=== PATIENT | female | born 1975 | race Caucasian/White ===

== ENCOUNTER 2017-01-20 01:42 | Emergency (ER) | payer SELFPAY ==
[~2017-01-20] VITALS: Ht 172.7 cm; Wt 135.0 kg
[~2017-01-20 01:42] MED LIST: FURO1TAB93 PO; LASI20TA PO; LEVE250 PO; SEIZURE MED PO
[2017-01-20 01:45] VITALS: BP 183/101; PULSE 87; RESP 18; TEMP 99.2; O2SAT 98
--- NOTE | 2017-01-20 02:59 | PD ---
HPI Chief Complaint: Complaint Time Seen by Provider: 02:46 Travel History International Travel<30 days: No Contact w/Intl Traveler<30days: No Traveled to known affect area: No History of Present Illness HPI 41-year-old female complains of mid back pain and coughing congestion. Patient started having persistent cough for the past several several days. Patient denies any fever chills. Patient started having sharp mid back pain for the past 2 days. Patient states that she has intermittent nausea vomiting with the pain. Patient denies any dysuria or frequency. Patient denies any vaginal discharge or bleeding. Patient denies any weakness or numbness of lower extremity. Patient has history kidney stone in the past. On a scale of 1-10 the pain is an 8. PFSH Past Medical History Arthritis: Yes (OSTEO/RA) Anxiety: Yes Diminished Hearing: No Kidney Stones: Yes (HISTORY OF) Seizures: Yes (PRIOR TO TUMOR REMOVAL) Tetanus Vaccination: < 5 Years Influenza Vaccination: No ?: Not LMP: 01/13/17 Menopausal: No : 3 Para: 3 Miscarriage: 0 : 0 Ectopic : No Ovarian Cysts: No Tubal Ligation: Yes Past Surgical History Appendectomy: Yes (2009) Cholecystectomy: Yes Hysterectomy: No Neurologic Surgery: Yes (BRAIN TUMOR REMOVE 11/05/13) Social History Alcohol Use: No Tobacco Use: No Substance Use: No Allergies-Medications (Allergen,Severity, Reaction): Coded Allergies: No Known Allergies (Verified , 01/20/17) Reported Meds & Prescriptions Reported Meds & Active Scripts Active No Active Prescriptions or Reported Medications Review of Systems General / Constitutional: No: Fever Eyes: No: Visual changes HENT: No: Headaches Cardiovascular: No: Chest Pain or Discomfort Respiratory: Positive: Cough, No: Shortness of Breath Gastrointestinal: Positive: Nausea, Vomiting, No: Abdominal Pain Genitourinary: No: Dysuria Musculoskeletal: No: Pain Skin: No Rash Neurologic: No: Weakness Psychiatric: No: Depression Endocrine: No: Polydipsia Hematologic/Lymphatic: No: Easy Bruising Physical Exam Narrative GENERAL: Well-nourished, well-developed patient. SKIN: Focused skin assessment warm/dry. HEAD: Normocephalic. EYES: No scleral icterus. No injection or drainage. NECK: Supple, trachea midline. No JVD or lymphadenopathy. CARDIOVASCULAR: Regular rate and rhythm without murmurs, gallops, or rubs. RESPIRATORY: Breath sounds equal bilaterally. No accessory muscle use. GASTROINTESTINAL: Abdomen soft, non-tender, nondistended. MUSCULOSKELETAL: No cyanosis, or edema. BACK: Patient has moderate tenderness on palpation low thoracic upper lumbar area, without obvious deformity. No CVA tenderness. Negative straight leg raising. Neurologic exam normal. Data Data Last Documented VS Vital Signs Date Time Temp Pulse Resp B/P Pulse Ox O2 Delivery O2 Flow Rate FiO2 01/20/17 01:45 99.2 87 18 183/101 98 Room Air Orders Urinalysis - C+S If Indicated (01/20/17 02:52) Chest, Single Ap (01/20/17 02:52) Ct Abd/Pel W/O Iv Contrast (01/20/17 02:52) Ketorolac Inj (Toradol Inj) (01/20/17 03:00) Ondansetron Odt (Zofran Odt) (01/20/17 03:00) Labs Laboratory Tests Test 01/20/17 03:26 Urine Color LIGHT-YELLOW Urine Turbidity HAZY Urine pH 7.0 Urine Specific [place] 1.012 Urine Protein NEG mg/dL Urine Glucose (UA) NEG mg/dL Urine Ketones NEG mg/dL Urine Occult Blood NEG Urine Nitrite NEG Urine Bilirubin NEG Urine Urobilinogen LESS THAN 2.0 MG/DL Urine Leukocyte Esterase LARGE Urine RBC 3 /hpf Urine WBC 6 /hpf Urine Squamous Epithelial 5 /hpf Cells Urine Transitional Epithelial 1 /hpf Cells Urine Amorphous Sediment RARE Urine Mucus FEW /lpf Microscopic Urinalysis Comment CULT NOT INDICATED MDM Medical Decision Making Medical Screen Exam Complete: Yes Emergency Medical Condition: Yes Interpretation(s) Last Impressions Chest X-Ray 01/20/17251 Signed Impressions: Service Date/Time: Friday, January 20, 2017 03:08 - CONCLUSION: Normal examination for a patient of this age. Houston Seals MD Abdomen/Pelvis CT 01/20/17251 Signed Impressions: Service Date/Time: Friday, January 20, 2017 03:02 - CONCLUSION: 1. 5 mm nonobstructing stone lower pole left kidney. 2. 4 mm nonobstructing stone lower pole right kidney. Houston Seals MD Differential Diagnosis Differential diagnosis including URI, bronchitis, pneumonia, musculoskeletal, pyelonephritis, nephrolithiasis, UTI. Narrative Course 41-year-old female with mid back pain, coughing congestion, nausea vomiting. History of kidney stone. Diagnosis Primary Impression: Lumbar strain Qualified Code: S39.012A - Lumbar strain, initial encounter Patient Instructions: General Instructions Additional Instructions: Take medication as needed for pain. Moist heat to back. Follow-up with personal physician. Return if worse. Med/Other Pt SpecificInfo: Prescription(s) given Scripts Tramadol (Ultram)50 Mg Tab50 Mg PO Q6H PRN (PAIN) #20 TAB Prov:Kurt Trevino MD 01/20/17 Methocarbamol (Robaxin)750 Mg Zps000 Mg PO QID #40 TAB Prov:Kurt Trevino MD 01/20/17 Meloxicam (Mobic)15 Mg Tab15 Mg PO DAILY #20 TAB Prov:Kurt Trevino MD 01/20/17 Disposition: 01 DISCHARGE HOME Condition: Stable Kurt Trevino MD January 20, 2017 02:59
[2017-01-20] MEDS ORDERED: ONDANSETRON ODT 4 MG TAB PO ONE (03:00)
[2017-01-20] MEDS ORDERED: KETOROLAC TROMETHAMINE 60 MG/2 ML (IM) VIAL IM ONE (03:00)
--- NOTE | 2017-01-20 03:16 | RADRPT ---
EXAM DATE/TIME: 01/20/2017 03:08 [facility] COMPARISON: No previous studies available for comparison. INDICATIONS : Chest pain, shortness of breath, cough, congestion and fever. MEDICAL HISTORY : None. SURGICAL HISTORY : None. ENCOUNTER: Initial ACUITY: 1 day PAIN SCORE: 8/10 LOCATION: Bilateral chest FINDINGS: A single view of the chest demonstrates the lungs to be symmetrically aerated without evidence of mas s, infiltrate or effusion. The cardiomediastinal contours are unremarkable. Osseous structures are intact. CONCLUSION: Normal examination for a patient of this age. Houston Seals MD on January 20, 2017 at 3:13 Board Certified Radiologist. This report was verified electronically.
--- NOTE | 2017-01-20 03:21 | RADRPT ---
EXAM DATE/TIME: 01/20/2017 03:02 [facility] COMPARISON: No previous studies available for comparison. INDICATIONS : Bilateral flank pain. ORAL CONTRAST: No oral contrast ingested. RADIATION DOSE: 33.74 CTDIvol (mGy) MEDICAL HISTORY : Renal calculi. SURGICAL HISTORY : Cholecystectomy. Appendectomy.Tubal ligation. ENCOUNTER: Initial ACUITY: 1 day PAIN SCALE: 8/10 LOCATION: Bilateral flank TECHNIQUE: Volumetric scanning of the abdomen and pelvis was performed. Using automated exposure control and ad justment of the mA and/or kV according to patient size, radiation dose was kept as low as reasonably achievable to obtain optimal diagnostic quality images. FINDINGS: LOWER LUNGS: The visualized lower lungs are clear. LIVER: Homogeneous density without lesion. There is no dilation of the biliary tree. No gallbladder, surgi piyush removed. SPLEEN: Normal size without lesion. PANCREAS: Within normal limits. KIDNEYS: Normal in size and shape. There is no mass or hydronephrosis. There is a 5 mm stone lower pole left kidney not causing obstruction. There is a 4 mm stone lower pole right kidney not causing obstruction . ADRENAL GLANDS: Within normal limits. VASCULAR: There is no aortic aneurysm. BOWEL/MESENTERY: The stomach, small bowel, and colon demonstrate no acute abnormality. There is no free intraperitone al air or fluid. No inflammatory changes ABDOMINAL WALL: Within normal limits. RETROPERITONEUM: There is no lymphadenopathy. BLADDER: No wall thickening or mass. No definite bladder stones. There are calcified phleboliths in the pelvis bilaterally. REPRODUCTIVE: Within normal limits. INGUINAL: There is no lymphadenopathy or hernia. MUSCULOSKELETAL: Within normal limits for patient age. CONCLUSION: 1. 5 mm nonobstructing stone lower pole left kidney. 2. 4 mm nonobstructing stone lower pole right kidney. Houston Seals MD on January 20, 2017 at 3:14 Board Certified Radiologist. This report was verified electronically.
[2017-01-20 03:38] LABS: BLOOD, URINE NEG (NEG); COMMENT (UR) CULT NOT INDICATED; CULTURE IF INDICATED CULT NOT INDICATED; GLUCOSE,URINE NEG (NEG); KETONE, URINE NEG (NEG); MUCUS URINE FEW /lpf (OCC); NITRITE,URINE NEG (NEG); SQUAMOUS EPITHELIAL CELL URINE 5 /hpf (0-5); TRANSITIONAL EPI CELLS, URINE 1 /hpf; URINE COLOR LIGHT-YELLOW (YELLW/STRAW)
[2017-01-20] MEDS ORDERED: ULTR50TA5 PO (03:44)
[2017-01-20] MEDS ORDERED: ROBA750T PO (03:44)
[2017-01-20] MEDS ORDERED: MOBI15TA PO (03:44)
[2017-01-20] MEDS ORDERED: KETOROLAC TROMETHAMINE 30 MG/ML (IVP) VIAL IV PUSH ONE (03:45)
== END 2017-01-20 04:11 | disposition home or self-care (01) ==
LOC: NEPC 01:42
DX: S39.012A Strain of muscle, fascia and tendon of lower back, initial encounter (principal); R05 Cough; Z87.442 Personal history of urinary calculi
CPT/HCPCS: 71010; 74176; 81001; 96374; 99284; J1885

== ENCOUNTER 2017-03-31 18:39 | Emergency (ER) | payer SELFPAY ==
[~2017-03-31] VITALS: Ht 172.7 cm; Wt 135.0 kg
[~2017-03-31 18:39] MED LIST changes: -FURO1TAB93 PO; -LASI20TA PO; -LEVE250 PO; +MOBI15TA PO; +ROBA750T PO; -SEIZURE MED PO; +ULTR50TA5 PO
[2017-03-31 18:41] VITALS: BP 233/101; PULSE 78; RESP 17; TEMP 98.2; O2SAT 98
[2017-03-31 20:37] LABS: BLOOD, URINE NEG (NEG); COMMENT (UR) CULT NOT INDICATED; CULTURE IF INDICATED CULT NOT INDICATED; GLUCOSE,URINE NEG (NEG); KETONE, URINE NEG (NEG); MUCUS URINE FEW /lpf (OCC); NITRITE,URINE NEG (NEG); URINE COLOR YELLOW (YELLW/STRAW)
[2017-03-31 21:57] VITALS: BP 140/76; PULSE 63; RESP 16; O2SAT 97
--- NOTE | 2017-03-31 21:58 | PD ---
HPI Chief Complaint: Complaint Time Seen by Provider: 19:59 Travel History International Travel<30 days: No Contact w/Intl Traveler<30days: No Traveled to known affect area: No History of Present Illness HPI The patient's 42 years old. She complains of urinary frequency and dysuria for 1 month. She reports a diagnosis of a prolapsed bladder done by CT scan at [facility] approximately one month ago. Since then she has had UTI twice. She reports completing Bactrim x 7 days just 2 days ago with near complete resolution of her symptoms. She now reports nausea however has not had vomiting. No fever. Last menstruation was only prior. She denies abnormal vaginal discharge. PFS Past Medical History Arthritis: Yes (OSTEO/RA) Anxiety: Yes Diminished Hearing: No Genitourinary: Yes (PROLAPSED BLADDER) Kidney Stones: Yes (HISTORY OF) Seizures: Yes (PRIOR TO TUMOR REMOVAL) Tetanus Vaccination: Unknown Influenza Vaccination: No ?: Not LMP: 03/25/17 Menopausal: No : 3 Para: 3 Miscarriage: 0 : 0 Ectopic : No Ovarian Cysts: No Tubal Ligation: Yes Past Surgical History Appendectomy: Yes (2009) Cholecystectomy: Yes Hysterectomy: No Neurologic Surgery: Yes (BRAIN TUMOR REMOVE 11/05/13) Social History Alcohol Use: No Tobacco Use: No Substance Use: No Allergies-Medications (Allergen,Severity, Reaction): Coded Allergies: No Known Allergies (Verified , 01/20/17) Reported Meds & Prescriptions Reported Meds & Active Scripts Active No Active Prescriptions or Reported Medications Review of Systems Except as stated in HPI: all other systems reviewed are Neg Physical Exam Narrative GENERAL: 42-year-old female well-nourished well-developed SKIN: Focused skin assessment warm/dry. HEAD: Atraumatic. Normocephalic. EYES: Pupils equal and round. No scleral icterus. No injection or drainage. ENT: No nasal bleeding or discharge. Mucous membranes pink and moist. NECK: Trachea midline. No JVD. CARDIOVASCULAR: Regular rate and rhythm. No murmur appreciated. RESPIRATORY: No accessory muscle use. Clear to auscultation. Breath sounds equal bilaterally. GASTROINTESTINAL: Abdomen is soft. There is minimal suprapubic tenderness. PELVIC: Trace white discharge in vaginal vault. Positive CMT. No adnexal mass or tenderness. MUSCULOSKELETAL: No obvious deformities. No clubbing. No cyanosis. No edema. NEUROLOGICAL: Awake and alert. No obvious cranial nerve deficits. Motor grossly within normal limits. Normal speech. PSYCHIATRIC: Appropriate mood and affect; insight and judgment normal. Data Data Last Documented VS Vital Signs Date Time Temp Pulse Resp B/P Pulse Ox O2 Delivery O2 Flow Rate FiO2 03/31/17 21:57 63 16 140/76 97 Room Air 03/31/17 18:41 98.2 Vital signs reviewed Orders Urinalysis - C+S If Indicated (03/31/17 20:02) Gc And Chlamydia Pcr (03/31/17 21:09) Wet Prep Profile (03/31/17 21:09) Ed Urine Pregnancytest Poc (03/31/17 21:09) Acetamin-Hydrocod 325-5 Mg ([place] 5-325 (03/31/17 22:00) Azithromycin Powd Pack (Zithromax Powd P (03/31/17 22:00) Ceftriaxone Inj (Rocephin Inj) (03/31/17 22:00) Lidocaine 1% Inj (50 Ml) (Xylocaine 1% I (03/31/17 22:00) Fluconazole (Diflucan) (03/31/17 22:15) Lidocaine Pf 1% Inj (Xylocaine-Mpf 1% In (03/31/17 22:33) Labs Laboratory Tests Test 03/31/17 03/31/17 20:00 21:20 Urine Color YELLOW Urine Turbidity CLEAR Urine pH 6.0 Urine Specific [place] 1.019 Urine Protein NEG mg/dL Urine Glucose (UA) NEG mg/dL Urine Ketones NEG mg/dL Urine Occult Blood NEG Urine Nitrite NEG Urine Bilirubin NEG Urine Urobilinogen LESS THAN 2.0 MG/DL Urine Leukocyte Esterase TRACE Urine WBC 1 /hpf Urine Mucus FEW /lpf Microscopic Urinalysis Comment CULT NOT INDICATED Clue Cells (Wet Prep) NONE SEEN Vaginal Trichomonas (Wet Prep) NONE SEEN Vaginal Yeast (Wet Prep) NONE SEEN Chlamydia trachomatis DNA NOT DETECTED (PCR) Neisseria gonorrhoeae DNA NOT DETECTED (PCR) MDM Medical Decision Making Medical Screen Exam Complete: Yes Emergency Medical Condition: Yes Medical Record Reviewed: Yes Differential Diagnosis IUP, UTI, ectopic , ov torsion, appendicitis, TOA, cervicitis, BV, Trichomoniasis, ov cyst, hernia, mittelschmerz, pain from menstruation Narrative Course Wet prep is negative as is urinalysis. It's unclear exactly why the patient is somewhat pain however upon reassessment several times she has been resting comfortably. We talked about plan for her and consideration is given a cervicitis. The sample for the wet prep was somewhat marginal in terms of quantity of discharge. A false negative wet prep is a consideration. Candidiasis is a consideration as well after 2 courses of antibiotics. One dose of Diflucan considered reasonable. Rocephin and azithromycin and also given. Follow-up with the urogynecology recommended. Patient agreeable with plan Diagnosis Primary Impression: Dysuria Referrals: Urologist 2 days Additional Instructions: You have a choice when it comes to health care, and we are glad that you chose [facility]. Hopefully, we have met your expectations on today's visit. You are welcome to return to [facility] at any time, as we are committed to meeting the health care needs of our community. Med/Other Pt SpecificInfo: Prescription(s) given Scripts No Active Prescriptions or Reported Meds Disposition: 01 DISCHARGE HOME Condition: Stable Dudley Franco MD Mar 31, 2017 21:58
[2017-03-31] MEDS ORDERED: AZITHROMYCIN PWD FOR SUSP 1 GM PACKET PO ONE (22:00)
[2017-03-31] MEDS ORDERED: ACETAMINOPHEN/HYDROcodone 325 MG/5 MG TAB PO ONE (22:00)
[2017-03-31] MEDS ORDERED: cefTRIAXone 250 MG VIAL IM ONE (22:00)
[2017-03-31] MEDS ORDERED: LIDOCAINE HCL 1% 50 ML VIAL IM ONE (22:00)
[2017-03-31] MEDS ORDERED: FLUCONAZOLE 100 MG TAB PO ONE (22:15)
[2017-03-31] MEDS ORDERED: LIDOCAINE HCL 1% PF 30 ML VIAL ONE (22:33)
[2017-03-31 23:28] LABS: CHLAMYDIA PCR NOT DETECTED (NOT DETECT); NEISSERIA PCR NOT DETECTED (NOT DETECT)
== END 2017-03-31 22:56 | disposition home or self-care (01) ==
LOC: NEPE 18:39
DX: R30.0 Dysuria (principal); Z87.442 Personal history of urinary calculi; N81.10 Cystocele, unspecified
CPT/HCPCS: 81001; 84703; 87210; 87491; 87591; 96372; 99284; J0696

== ENCOUNTER 2017-09-08 16:19 | Emergency (ER) | payer SELFPAY ==
[~2017-09-08] VITALS: Ht 175.3 cm; Wt 146.0 kg
[2017-09-08 16:26] VITALS: BP 196/93; PULSE 92; RESP 16; TEMP 98; O2SAT 96
[2017-09-08] MEDS ORDERED: SODIUM CHLOR 0.9% 1000 ML INJ 1,000 ML IV SCH (16:37)
--- NOTE | 2017-09-08 16:41 | PD ---
HPI Chief Complaint: Abdominal Pain Time Seen by Provider: 16:31 Travel History International Travel<30 days: No Contact w/Intl Traveler<30days: No Traveled to known affect area: No History of Present Illness HPI 42-year-old female here for evaluation of right flank and right upper quadrant abdominal pain. The patient reports that the symptoms have been going on for last 5 days, constant, worsening, intermittently worse at times, currently 10 out of 10, described as sharp and radiates to her right lower quadrant. Pain is associated with nausea but no vomiting. She has had some loose bowel movements that have been brown, nonbloody. She has not noted any fevers or chills. History of cholecystectomy, appendectomy, and bilateral tubal ligation. She denies urinary symptoms. PFSH Past Medical History Arthritis: Yes (OSTEO/RA) Anxiety: Yes Diminished Hearing: No Genitourinary: Yes (PROLAPSED BLADDER) Kidney Stones: Yes (HISTORY OF) Seizures: Yes (PRIOR TO TUMOR REMOVAL) ?: Not LMP: tubal ligation Menopausal: No : 3 Para: 3 Miscarriage: 0 : 0 Ectopic : No Ovarian Cysts: No Tubal Ligation: Yes Past Surgical History Appendectomy: Yes (2009) Cholecystectomy: Yes Hysterectomy: No Neurologic Surgery: Yes (BRAIN TUMOR REMOVE 11/05/13) Social History Alcohol Use: No Tobacco Use: No Substance Use: No Allergies-Medications (Allergen,Severity, Reaction): Coded Allergies: No Known Allergies (Verified Adverse Reaction, Unknown, 09/08/17) Reported Meds & Prescriptions Reported Meds & Active Scripts Active No Active Prescriptions or Reported Medications Review of Systems Except as stated in HPI: all other systems reviewed are Neg Physical Exam Narrative GENERAL: Well-developed, well-nourished, overweight, no apparent distress. SKIN: Focused skin assessment warm/dry. No rash. HEAD: Atraumatic. Normocephalic. EYES: Pupils equal and round. No scleral icterus. No injection or drainage. ENT: Mucous membranes pink and moist. NECK: Trachea midline. No JVD. CARDIOVASCULAR: Regular rate and rhythm. No murmur appreciated. RESPIRATORY: No accessory muscle use. Clear to auscultation. Breath sounds equal bilaterally. GASTROINTESTINAL: Abdomen soft, nondistended. Mild right upper, right mid, and right lower quadrant tenderness without peritoneal signs. Rest of abdomen is soft and nontender. Normal bowel sounds. MUSCULOSKELETAL: No obvious deformities. No clubbing. No cyanosis. No edema. Moderate right CVA tenderness. No left CVA tenderness. NEUROLOGICAL: Awake and alert. No obvious cranial nerve deficits. Motor grossly within normal limits. Normal speech. PSYCHIATRIC: Appropriate mood and affect; insight and judgment normal. Data Data Last Documented VS Vital Signs Date Time Temp Pulse Resp B/P (MAP) Pulse Ox O2 Delivery O2 Flow Rate FiO2 09/08/17 17:45 72 18 109/75 (86) 96 Room Air 09/08/17 16:26 98.0 Orders Orders Urinalysis - C+S If Indicated (09/08/17 16:22) Ed Urine Pregnancytest Poc (09/08/17 16:22) Complete Blood Count With Diff (09/08/17 16:37) Comprehensive Metabolic Panel (09/08/17 16:37) Lipase (09/08/17 16:37) Prothrombin Time / Inr (Pt) (09/08/17 16:37) Act Partial Throm Time (Ptt) (09/08/17 16:37) Ct Abd/Pel W Iv Contrast(Rout) (09/08/17 16:37) Iv Access Insert/Monitor (09/08/17 16:37) Ecg Monitoring (09/08/17 16:37) Oximetry (09/08/17 16:37) Ondansetron Inj (Zofran Inj) (09/08/17 16:45) Sodium Chlor 0.9% 1000 Ml Inj (Ns 1000 M (09/08/17 16:37) Sodium Chloride 0.9% Flush (Ns Flush) (09/08/17 16:45) Morphine Inj (Morphine Inj) (09/08/17 16:45) Iohexol 350 Inj (Omnipaque 350 Inj) (09/08/17 18:33) Labs Laboratory Tests Test 09/08/17 16:35 09/08/17 16:50 Urine Collection Type CLEAN CATCH Urine Color YELLOW Urine Turbidity CLEAR Urine pH 5.5 Urine Specific [place] 1.024 Urine Protein NEG mg/dL Urine Glucose (UA) NEG mg/dL Urine Ketones NEG mg/dL Urine Occult Blood NEG Urine Nitrite NEG Urine Bilirubin NEG Urine Leukocyte Esterase NEG Urine RBC 0-3 /hpf Urine WBC 0-2 /hpf Urine Squamous Epithelial Cells 0-5 /hpf Microscopic Urinalysis Comment CULT NOT INDICATED Urine Collection Time 1635 White Blood Count 8.7 TH/MM3 Red Blood Count 4.39 MIL/MM3 Hemoglobin 12.2 GM/DL Hematocrit 36.8 % Mean Corpuscular Volume 83.9 FL Mean Corpuscular Hemoglobin 27.7 PG Mean Corpuscular Hemoglobin Concent 33.0 % Red Cell Distribution Width 13.0 % Platelet Count 253 TH/MM3 Mean Platelet Volume 7.4 FL Neutrophils (%) (Auto) 61.5 % Lymphocytes (%) (Auto) 31.8 % Monocytes (%) (Auto) 5.7 % Eosinophils (%) (Auto) 0.7 % Basophils (%) (Auto) 0.3 % Neutrophils # (Auto) 5.3 TH/MM3 Lymphocytes # (Auto) 2.8 TH/MM3 Monocytes # (Auto) 0.5 TH/MM3 Eosinophils # (Auto) 0.1 TH/MM3 Basophils # (Auto) 0.0 TH/MM3 CBC Comment DIFF FINAL Differential Comment Prothrombin Time 10.7 SEC Prothromb Time International Ratio 1.1 RATIO Activated Partial Thromboplast Time 27.0 SEC Blood Urea Nitrogen 12 MG/DL Creatinine 0.74 MG/DL Random Glucose 114 MG/DL Total Protein 7.7 GM/DL Albumin 3.5 GM/DL Calcium Level 8.3 MG/DL Alkaline Phosphatase 126 U/L Aspartate Amino Transf (AST/SGOT) 24 U/L Alanine Aminotransferase (ALT/SGPT) 44 U/L Total Bilirubin 0.2 MG/DL Sodium Level 141 MEQ/L Potassium Level 3.9 MEQ/L Chloride Level 107 MEQ/L Carbon Dioxide Level 27.8 MEQ/L Anion Gap 6 MEQ/L Estimat Glomerular Filtration Rate 85 ML/MIN Lipase 159 U/L [facility] Medical Decision Making Medical Screen Exam Complete: Yes Emergency Medical Condition: Yes Medical Record Reviewed: Yes Differential Diagnosis Nephrolithiasis, ureterolithiasis, pyelonephritis, hepatobiliary disease, colitis, peptic ulcer disease, pancreatitis Narrative Course Initial vital signs show heart rate 92, blood pressure 196/93, pulse ox 96% on room air, oral temp of 98F. CBC is unremarkable. CMP is unremarkable. Lipase is 159. UA is within normal limits, no hematuria, no UTI. CT ABD/PELVIS: CONCLUSION: 1. Bilateral renal calculi with no evidence of obstruction. 2. Mild hepatic steatosis. 3. Status post cholecystectomy. 4. Unremarkable bowel gas pattern. Patient was given 4 mg of IV morphine. On reassessment she is resting comfortably. She was made aware of all findings. At this point she is stable for discharge home with outpatient follow-up with a primary care physician this week. She is requesting a work note to take off of work for the weekend. She was advised on when to return to the emergency department. She verbalizes understanding and agreement with plan. Diagnosis Primary Impression: Nephrolithiasis Additional Impression: Right flank pain Referrals: Garland Cooper DO 3 days Urologist [facility] [address] 3 days Primary Care Physician 3 days Additional Instructions: Follow-up with a primary care physician this week. Follow-up with urologist Dr. Cooper or urologist of your choice this week. Take ibuprofen for pain. Return to the emergency department for worsening symptoms or any other concerns. Scripts Ondansetron Odt (Zofran Odt) 4 Mg Tab 4 MG SL Q8HR Y for Nausea/Vomiting, #20 TAB 0 Refills Prov: Andre Ledezma MD 09/08/17 Hydrocodone-Acetaminophen (Hydrocodone-Acetaminophen) 5-325 mg Tab 1 TAB PO Q6H Y for PAIN, #10 TAB 0 Refills Prov: Andre Ledezma MD 09/08/17 Disposition: 01 DISCHARGE HOME Condition: Stable Andre Ledezma MD Sep 08, 2017 16:41
[2017-09-08] MEDS ORDERED: ONDANSETRON HCL 4 MG/2 ML VIAL IVP ONE (16:45)
[2017-09-08] MEDS ORDERED: SODIUM CHLORIDE 0.9% FLUSH 10 ML FLUSH IV FLUSH PRN (16:45)
[2017-09-08] MEDS ORDERED: MORPHINE SULFATE 2 MG/ML INJ IV PUSH ONE (16:45)
[2017-09-08 17:05] VITALS: O2SAT 98
[2017-09-08 17:08] LABS: AUTOMATED NEUTROPHIL # 5.3 TH/MM3 (1.8-7.7); BASOPHIL % 0.3 % (0.0-2.0); EOSINOPHIL # 0.1 TH/MM3 (0-0.4); EOSINOPHIL % 0.7 % (0.0-4.0); HEMATOCRIT 36.8 % (35.0-46.0); HEMOGLOBIN 12.2 GM/DL (11.6-15.3); LYMPH % 31.8 % (9.0-44.0); LYMPHOCYTE # 2.8 TH/MM3 (1.0-4.8); MEAN CELL VOLUME 83.9 FL (80.0-100.0); MEAN CORPUSCULAR HEMOGLOBIN 27.7 PG (27.0-34.0); MEAN PLATELET VOLUME 7.4 FL (7.0-11.0); MONO % 5.7 % (0.0-8.0); MONOCYTE # 0.5 TH/MM3 (0-0.9); NEUT % 61.5 % (16.0-70.0); PLATELET COUNT 253 TH/MM3 (150-450); RED BLOOD COUNT 4.39 MIL/MM3 (4.00-5.30); WHITE BLOOD COUNT 8.7 TH/MM3 (4.0-11.0)
[2017-09-08 17:09] LABS: BILIRUBIN, URINE NEG (NEG); BLOOD, URINE NEG (NEG); GLUCOSE,URINE NEG (NEG); KETONE, URINE NEG (NEG); NITRITE,URINE NEG (NEG); PH, URINE 5.5 (5.0-8.5); URINE LEUKOCYTE ESTERASE NEG (NEG)
[2017-09-08 17:15] LABS: URINE COLOR YELLOW (YELLW/STRAW)
[2017-09-08 17:17] LABS: RBC, URINE 0-3 /hpf (0-3); SQUAMOUS EPITHELIAL CELL URINE 0-5 /hpf (0-5); WBC, URINE 0-2 /hpf (0-5)
[2017-09-08 17:35] LABS: CHLORIDE 107 MEQ/L (98-107); SODIUM (NA) 141 MEQ/L (136-145)
[2017-09-08 17:39] LABS: ALBUMIN 3.5 GM/DL (3.4-5.0); BICARBONATE 27.8 MEQ/L (21.0-32.0); BLOOD UREA NITROGEN 12 MG/DL (7-18); CALCIUM 8.3 MG/DL (8.5-10.1); GLUCOSE,RANDOM 114 MG/DL (74-106); LIPASE 159 U/L (73-393)
[2017-09-08 17:42] LABS: ALT (GPT) 44 U/L (10-53); AST (GOT) 24 U/L (15-37); CREATININE 0.74 MG/DL (0.50-1.00); GLOMERULAR FILTRATION RATE 85 ML/MIN (>89)
[2017-09-08 17:44] LABS: TOTAL BILIRUBIN ADULT 0.2 MG/DL (0.2-1.0); TOTAL PROTEIN 7.7 GM/DL (6.4-8.2)
[2017-09-08 17:45] VITALS: BP 109/75; PULSE 72; RESP 18; O2SAT 96
[2017-09-08 17:45] LABS: ALKALINE PHOSPHATASE 126 U/L (45-117)
[2017-09-08 18:04] LABS: INTERNATIONAL NORMALIZED RATIO 1.1 RATIO; PROTHROMBIN TIME - PATIENT 10.7 SEC (9.8-11.6)
[2017-09-08] MEDS ORDERED: IOHEXOL 350 MG/ML 10 ML VIAL (for RAD DIAG) IVCONTRAST ONE (18:33)
--- NOTE | 2017-09-08 18:37 | RADRPT ---
EXAM DATE/TIME: 09/08/2017 18:13 [facility] COMPARISON: CT ABDOMEN & PELVIS W/O CONTRAST, January 20, 2017, 3:02. INDICATIONS : Epigastric pain. Known renal calculi. IV CONTRAST: 93 cc Omnipaque 350 (iohexol) IV ORAL CONTRAST: No oral contrast ingested. RADIATION DOSE: 22.44 CTDIvol (mGy) MEDICAL HISTORY : None SURGICAL HISTORY : Appendectomy. Cholecystectomy.Tubal ligation. ENCOUNTER: Initial ACUITY: 1 day PAIN SCALE: 5/10 LOCATION: abdomen TECHNIQUE: Volumetric scanning of the abdomen and pelvis was performed. Using automated exposure control and ad justment of the mA and/or kV according to patient size, radiation dose was kept as low as reasonably achievable to obtain optimal diagnostic quality images. DICOM format image data is available electro nically for review and comparison. FINDINGS: LOWER LUNGS: The visualized lower lungs are clear. LIVER: Homogeneous density without lesion. There is no dilation of the biliary tree. There is mild hepatic steatosis. Patient is status post cholecystectomy. SPLEEN: Normal size without lesion. PANCREAS: Within normal limits. KIDNEYS: Normal in size and shape. There is no mass or hydronephrosis. There is a stable 5 mm nonobstructing left renal calculus in the lower pole. There are several minute right renal calculi. Ureters are unre markable. ADRENAL GLANDS: The right adrenal gland is unremarkable. There is a stable low density left adrenal adenoma. VASCULAR: There is no aortic aneurysm. BOWEL/MESENTERY: No oral contrast was given limiting the sensitivity of the exam. The stomach, small bowel, and colon demonstrate no acute abnormality. There is no free intraperitoneal air or fluid. ABDOMINAL WALL: Within normal limits. RETROPERITONEUM: There is no lymphadenopathy. BLADDER: No wall thickening or mass. REPRODUCTIVE: Within normal limits. INGUINAL: There is no lymphadenopathy or hernia. MUSCULOSKELETAL: Within normal limits for patient age. CONCLUSION: 1. Bilateral renal calculi with no evidence of obstruction. 2. Mild hepatic steatosis. 3. Status post cholecystectomy. 4. Unremarkable bowel gas pattern. Stas Otero MD on September 08, 2017 at 18:30 Board Certified Radiologist. This report was verified electronically.
[2017-09-08] MEDS ORDERED: HYDR-3516 PO (18:45)
[2017-09-08] MEDS ORDERED: ZOFR4TAB3 SL (18:45)
[2017-09-08 19:05] VITALS: BP 111/69
== END 2017-09-08 19:06 | disposition home or self-care (01) ==
LOC: PHED 16:19
DX: N20.0 Calculus of kidney (principal); K76.0 Fatty (change of) liver, not elsewhere classified; F41.9 Anxiety disorder, unspecified; Z87.442 Personal history of urinary calculi
CPT/HCPCS: 74177; 80053; 81001; 83690; 84703; 85025; 85610; 85730; 96361; 96374; 96375; 99285; J2270; J2405; J7030; Q9967

== ENCOUNTER 2018-01-05 19:01 | Emergency (ER) | payer SELFPAY ==
[~2018-01-05 19:01] MED LIST changes: +HYDR-3516 PO; -MOBI15TA PO; -ROBA750T PO; -ULTR50TA5 PO; +ZOFR4TAB3 SL
[2018-01-05 19:18] VITALS: BP 190/110; PULSE 88; RESP 20; TEMP 98.3; O2SAT 97
[2018-01-05] MEDS ORDERED: CYCLOBENZAPRINE HCL 10 MG TAB PO ONE (21:00)
[2018-01-05] MEDS ORDERED: KETOROLAC TROMETHAMINE 60 MG/2 ML (IM) VIAL IM ONE (21:00)
--- NOTE | 2018-01-05 21:24 | PD ---
HPI Chief Complaint: Musculoskeletal Complaint Time Seen by Provider: 20:42 Travel History International Travel<30 days: No Contact w/Intl Traveler<30days: No Traveled to known affect area: No History of Present Illness HPI Patient is a 42 year old female who comes in complaining of right arm pain. She says she first started having pain to her elbow Monday and this spread down to her fingers and up to her shoulder since then. She says she took some Tylenol and Ibuprofen without relief of her pain. She works as a [employer] and has to lift and take care of patients. She does not recall a specific injury. Using her arm makes the pain worse. Severity is mild to moderate. PFSH Past Medical History Arthritis: Yes Anxiety: Yes Diminished Hearing: No GERD: Yes Genitourinary: Yes (PROLAPSED BLADDER) Kidney Stones: Yes (HISTORY OF) Immunizations Current: Yes Seizures: Yes (PRIOR TO TUMOR REMOVAL) Influenza Vaccination: No ?: Not Menopausal: No : 3 Para: 3 Miscarriage: 0 : 0 Ectopic : No Ovarian Cysts: No Tubal Ligation: Yes Past Surgical History Appendectomy: Yes (2009) Cholecystectomy: Yes Hysterectomy: No Neurologic Surgery: Yes (BRAIN TUMOR REMOVE 11/05/13) Social History Alcohol Use: No Tobacco Use: No Substance Use: No Allergies-Medications (Allergen,Severity, Reaction): Coded Allergies: No Known Allergies (Verified Adverse Reaction, Unknown, 01/05/18) Reported Meds & Prescriptions Reported Meds & Active Scripts Active Review of Systems General / Constitutional: No: Fever, Chills HENT: No: Headaches, Lightheadedness Cardiovascular: No: Chest Pain or Discomfort Respiratory: No: Shortness of Breath Gastrointestinal: No: Nausea, Vomiting Musculoskeletal: Positive: Myalgias, Pain, No: Edema Skin: No Rash, No Change in Pigmentation Neurologic: No: Weakness, Sensory Disturbance Physical Exam Narrative GENERAL: Awake and alert, in no acute distress. SKIN: Focused skin assessment warm/dry. No wounds or signs of infection. HEAD: Atraumatic. Normocephalic. EYES: Pupils equal and round. No scleral icterus. ENT: Mucous membranes pink and moist. NECK: Trachea midline. No JVD. Tender to palpation of the right trapezius muscle. CARDIOVASCULAR: Regular rate and rhythm. No murmur appreciated. RESPIRATORY: No accessory muscle use. Clear to auscultation. Breath sounds equal bilaterally. MUSCULOSKELETAL: No obvious deformities. No clubbing. No cyanosis. No edema. Pain with movement of the right shoulder and right elbow. Radial pulse intact. NEUROLOGICAL: Awake and alert. No obvious cranial nerve deficits. Motor grossly within normal limits. Normal speech. Sensation intact. Data Data Last Documented VS Vital Signs Date Time Temp Pulse Resp B/P (MAP) Pulse Ox O2 Delivery O2 Flow Rate FiO2 01/05/18 19:18 98.3 88 20 190/110 (136) 97 Orders Orders Ketorolac Inj (Toradol Inj) (01/05/18 21:00) Cyclobenzaprine (Flexeril) (01/05/18 21:00) [facility] Medical Decision Making Medical Screen Exam Complete: Yes Emergency Medical Condition: Yes Medical Record Reviewed: Yes Differential Diagnosis Muscle strain versus muscle spasm versus radiculopathy Narrative Course Patient is a 42-year-old female comes in complaining of right arm pain. Exam shows tenderness to palpation of the right trapezius as well as pain with movement of the shoulder and elbow. Patient given Toradol and Flexeril. She is advised to continue ibuprofen and take Flexeril as needed. Advised follow- up with a primary care doctor. Advised to return to the ED as needed for any worsening symptoms. Diagnosis Primary Impression: Muscle strain Patient Instructions: General Instructions, Muscle Strain (ED) Additional Instructions: Take ibuprofen and Flexeril as needed for pain. Follow-up with a primary care doctor. Return to the ED as needed for any worsening symptoms. Scripts Cyclobenzaprine (Flexeril) 10 Mg Tab 10 MG PO TID for Muscle Spasm, #15 TAB 0 Refills Prov: Debbie Timmons MD 01/05/18 Disposition: 01 DISCHARGE HOME Condition: Stable Debbie Timmons MD Jan 05, 2018 21:24
[2018-01-05] MEDS ORDERED: CYCL10TA PO ×2 (21:47)
== END 2018-01-05 21:52 | disposition home or self-care (01) ==
LOC: PHED 19:01 → PHEFT 21:52
DX: S46.911A Strain of unspecified muscle, fascia and tendon at shoulder and upper arm level, right arm, initial encounter (principal); X58.XXXA Exposure to other specified factors, initial encounter; F41.9 Anxiety disorder, unspecified; K21.9 Gastro-esophageal reflux disease without esophagitis
CPT/HCPCS: 96372; 99283; J1885